=== PATIENT | female | born 1985 | race Caucasian/White ===

== ENCOUNTER 2016-09-09 14:43 | Emergency (ER) | payer OTHER ==
[2016-09-09 17:20] LABS: microscopic required? NO
[2016-09-09 17:22] LABS: BASOPHIL % 0.4 % (0-2); PLATELET COUNT 317 x10^3mcL (130-400); RED CELL DISTRIBUTION WIDTH 12.9 % (11.5-14.5)
[2016-09-09 17:30] LABS: UA SPECIFIC GRAVITY >=1.030 (1.005-1.035); urine erythrocyte NEGATIVE (NEGATIVE)
[2016-09-09 17:35] LABS: CALCIUM 9.2 mg/dL (8.5-10.1); CARBON DIOXIDE 26.6 mmol/L (21-32); CHLORIDE SERUM 106 mmol/L (98-107); CREATININE SERUM 0.9 mg/dL (0.6-1.0); GFR1 > 60 mL/min; GLUCOSE SERUM 95 mg/dL (74-106); POTASSIUM SERUM 4.1 mmol/L (3.5-5.1); SODIUM SERUM 140 mmol/L (136-145)
[2016-09-09 17:37] LABS: ALKALINE PHOSPHATASE 102 U/L (46-116); ALT/SGPT 74 U/L (14-59); AST/SGOT 42 U/L (15-37); BILIRUBIN TOTAL 0.3 mg/dL (0.20-1.00)
[2016-09-09 18:42] VITALS: BP 118/75
== END 2016-09-09 18:42 | disposition home or self-care (01) ==
LOC: ED 14:43
PROVIDERS: Emergency Medicine
DX: R42 Dizziness and giddiness (principal); R11.0 Nausea; R10.9 Unspecified abdominal pain
CPT/HCPCS: 36415

== ENCOUNTER 2016-12-15 15:54 | Emergency (ER) | payer OTHER ==
[~2016-12-15] VITALS: Ht 162.6 cm; Wt 90.7 kg
[2016-12-15 18:00] VITALS: BP 114/64
== END 2016-12-15 18:00 | disposition home or self-care (01) ==
LOC: ED 15:54
DX: S29.011A Strain of muscle and tendon of front wall of thorax, initial encounter (principal); Z90.49 Acquired absence of other specified parts of digestive tract; X58.XXXA Exposure to other specified factors, initial encounter; Y93.89 Activity, other specified; Y99.8 Other external cause status; Y92.89 Other specified places as the place of occurrence of the external cause

== ENCOUNTER 2017-04-13 15:26 | Emergency (ER) | payer OTHER ==
[~2017-04-13] VITALS: Ht 160 cm; Wt 93.4 kg
[2017-04-13 15:43] VITALS: BP 127/79; Ht 160 cm; Wt 93.4 kg
== END 2017-04-13 18:12 ==
LOC: ED 15:26
DX: J40 Bronchitis, not specified as acute or chronic (principal); R09.1 Pleurisy; Z90.49 Acquired absence of other specified parts of digestive tract

== ENCOUNTER 2018-02-21 09:05 | Emergency (ER) | payer OTHER ==
[~2018-02-21] VITALS: Ht 162.6 cm; Wt 94.9 kg
[2018-02-21 09:12] VITALS: Ht 162.6 cm; Wt 94.9 kg
[2018-02-21 10:20] VITALS: BP 104/60
== END 2018-02-21 10:20 | disposition home or self-care (01) ==
LOC: ED 09:05
DX: H61.23 Impacted cerumen, bilateral (principal); R42 Dizziness and giddiness
CPT/HCPCS: J8597; Q0162

== ENCOUNTER 2018-12-16 14:53 | Emergency (ER) | payer OTHER ==
[~2018-12-16] VITALS: Ht 162.6 cm; Wt 96.3 kg
[2018-12-16 15:12] VITALS: Ht 162.6 cm; Wt 96.3 kg
[2018-12-16 16:05] VITALS: BP 108/67
== END 2018-12-16 16:06 | disposition home or self-care (01) ==
LOC: ED 14:53
DX: M54.5 Low back pain (principal); Z90.49 Acquired absence of other specified parts of digestive tract

== ENCOUNTER 2019-07-10 07:03 | Emergency (ER) | payer OTHER ==
[~2019-07-10] VITALS: Ht 167.6 cm; Wt 98.4 kg
[2019-07-10 07:09] VITALS: Ht 167.6 cm; Wt 98.4 kg
[2019-07-10 08:08] VITALS: BP 121/57
== END 2019-07-10 08:08 | disposition home or self-care (01) ==
LOC: ED 07:03
DX: M62.830 Muscle spasm of back (principal); Z90.49 Acquired absence of other specified parts of digestive tract

== ENCOUNTER 2019-12-07 23:49 | Emergency (ER) | payer OTHER ==
[~2019-12-07] VITALS: Ht 162.6 cm; Wt 98.9 kg
[2019-12-08 00:02] VITALS: Ht 162.6 cm; Wt 98.9 kg
[2019-12-08 01:44] LABS: BASOPHIL % 1.9 % (0-2); PLATELET COUNT 330 x10^3mcL (130-400); RED CELL DISTRIBUTION WIDTH 12.4 % (11.5-14.5)
[2019-12-08 01:54] LABS: CARBON DIOXIDE 25.7 mmol/L (21-32); CHLORIDE SERUM 101 mmol/L (98-107); CREATININE SERUM 0.8 mg/dL (0.6-1.0); GFR1 > 60 mL/min; GLUCOSE SERUM 111 mg/dL (74-106); POTASSIUM SERUM 3.5 mmol/L (3.5-5.1); SODIUM SERUM 137 mmol/L (136-145)
[2019-12-08 01:59] LABS: ALBUMIN 3.5 g/dL (3.4-5.0); ALKALINE PHOSPHATASE 97 U/L (46-116); ALT/SGPT 90 U/L (14-59); AST/SGOT 52 U/L (15-37); LIPASE 119 IU/L (73-393); TOTAL PROTEIN, SERUM 7.6 g/dL (6.4-8.2)
[2019-12-08 02:02] LABS: AMYLASE 17 U/L (25-115)
[2019-12-08 03:21] VITALS: BP 120/74
== END 2019-12-08 03:00 | disposition left against medical advice (07) ==
LOC: ED 23:49
PROVIDERS: Emergency Medicine
DX: D27.1 Benign neoplasm of left ovary (principal); D27.0 Benign neoplasm of right ovary